=== PATIENT | male | born 1945 | race Caucasian/White ===

== ENCOUNTER 2016-07-11 11:33 | Inpatient (IN) | payer OTHER, MEDICARE ==
[~2016-07-11] VITALS: Ht 180.3 cm; Wt 76.5 kg
[2016-07-18] MEDS ORDERED: ASPI81TA11 PO (14:48)
[2016-07-18] MEDS ORDERED: BENA25CA4 PO (14:48)
[2016-07-18] MEDS ORDERED: CALC1TAB69 PO (14:48)
[2016-07-18] MEDS ORDERED: FINA5TAB2 PO (14:48)
[2016-07-18] MEDS ORDERED: LYSI1TAB4 PO (14:48)
[2016-07-18] MEDS ORDERED: NITR1SUB3 SL (14:48)
[2016-07-18] MEDS ORDERED: DILT-64 PO (14:48)
[2016-07-18] MEDS ORDERED: TAMS0.4C4 PO (14:48)
[2016-07-18] MEDS ORDERED: GLUC500C5 PO (14:48)
[2016-07-18] MEDS ORDERED: LISI-519 PO (14:48)
[2016-07-18] MEDS ORDERED: METF1000 PO (14:48)
[2016-07-18] MEDS ORDERED: ATOR20TA15 PO (14:48)
[2016-07-24] VITALS (15 sets, daily range): BP systolic 148–156; BP diastolic 67–84; PULSE 62–75; RESP 14–20; TEMP 97.5–97.9; O2SAT 96–99
[2016-07-24] MEDS ORDERED: INSULIN HUMAN REGULAR 1,000 UNITS/10 ML VIAL SQ PRN (06:30)
[2016-07-24] MEDS ORDERED: SODIUM CHLORID 0.9% 500 ML IV PRN (06:30)
[2016-07-24] MEDS ORDERED: CHLORHEXIDINE GLUCONATE 2 % 1 PACK (2 CLOTHS) TOPICAL PRN (06:30)
[2016-07-24] MEDS ORDERED: METOPROLOL TARTRATE 25 MG TAB PO PRN (06:30)
[2016-07-24] MEDS ORDERED: LACTATED RINGER'S 1000 ML IV PRN (06:30)
--- NOTE | 2016-07-24 06:41 | HHI.HP ---
History of Present Illness Chief Complaint: L LE claudication History of Present Illness 71 yo male with L LE claudication. h/o iliac stents. Claudication is lifestyle limiting and has tried exercise without relief of symptoms. No rest pain and no tissue loss. Past/Family/Social History Past Medical History HTN BPH CAD XOL DM Past Surgical History CABG T&A iliac stents Family History NC Home Medications Reported Medications Diphenhydramine HCl (Benadryl Allergy)25 Mg Cap1 Cap PO DAILY USES EQUATE ALLERGY 07/18/16 Tamsulosin 0.4 Mg Cap0.4 Mg PO BID #30 CAP Ref 0 07/18/16 Nitroglycerin SL 0.4 Mg Subl0.4 Mg SL DIRECTED PRN (CHEST PAIN) #100 TAB.SL Ref 0 ONE TABLET UNDER THE TONGUE NEEDED FOR CHEST PAIN, MAY REPEAT EVERY FIVE MINUTES FOR A TOTAL OF 3 DOSES OR CALL 911 IF NO RELIEF 07/18/16 Metformin 1,000 Mg Tab1,000 Mg PO BIDPC #60 TAB Ref 0 With meals 07/18/16 Lysine HCl (Lysine)500 Mg Tab1 Tab PO DAILY 07/18/16 Lisinopril 5 Mg Tab5 Mg PO DAILY #30 TAB Ref 0 07/18/16 Glucosamine 500 Mg [id number] Mg PO DAILY Ref 0 07/18/16 Finasteride 5 Mg Tab5 Mg PO HS #30 TAB Ref 0 Do not crush. 07/18/16 Diltiazem CD 24 HR 240 Mg [id number] Mg PO DAILY #30 CAP Ref 0 07/18/16 Calcium Polycarbophil 625 Mg [id number] Mg PO DAILY 07/18/16 Atorvastatin 20 Mg Tab20 Mg PO HS #30 TAB Ref 0 07/18/[address] (Aspirin EC)81 Mg Tabdr81 Mg PO DAILY Ref 0 07/18/16 Discontinued Reported Medications Calcium Polycarbophil (Fibercon)625 Mg Fto196 Mg PO DAILY PRN (CONSTIPATION) Ref 0 07/18/16 Coded Allergies: Codeine (Verified Allergy, Severe, URINARY RETENTION, 07/24/16) Contrast Media (Verified Allergy, Severe, PT STATES ALLERGIC TO SHRIMP NOT CONTRAST, 07/24/16) Penicillin (Verified Allergy, Severe, HIVES AND RASH, 07/24/16) Shrimp (Verified Allergy, Severe, RASH, 07/24/16) Review of Systems Constitutional: DENIES: Fatigue, Fever, Chills Respiratory: DENIES: Shortness of breath Cardiovascular: COMPLAINS OF: Claudication, DENIES: Chest pain Physical Exam Neuro: awake, alert, NAD; HI HEENT: NC/AT; wears glasses Neck: no JVD Heart: reg rate Lungs: nonlabored Abdomen: NT Vascular: nonpalp L fem pulse Extremities: no C/C/E HI symmetrically no wounds outpatient: Hct 40 plt 234 INR 1.0 creatinine 0.8 Assessment and Plan Plan L groin reconstruction and iliac endovascular intervention All questions answered today to patient and his Operative site marked To OR Discharge Planning 1-2 days home phone [phone] Kenney Lowery MD Jul 24, 2016 06:41
[2016-07-24] MEDS ORDERED: FAMOTIDINE 20 MG/2 ML VIAL ONE (07:54)
[2016-07-24] MEDS ORDERED: MIDAZOLAM HCL 2 MG/2 ML VIAL ONE (07:55)
[2016-07-24] MEDS ORDERED: THROMBIN (TOPICAL) 20,000 UNIT SPRAY KIT ONE (07:57)
[2016-07-24] MEDS ORDERED: HEPARIN SODIUM - IV 10,000 UNITS/10 ML VIAL ONE (07:57)
[2016-07-24] MEDS ORDERED: BUPIVACAINE/EPINEPHRINE 0.5% PF 30 ML VIAL ONE (07:57)
[2016-07-24] MEDS ORDERED: ACETAMINOPHEN 1000 MG/100 ML VIAL IV ONE (08:03)
[2016-07-24] MEDS ORDERED: VANCOMYCIN HCL 1000 MG VIAL ONE ×2 (09:05→09:36)
[2016-07-24] MEDS ORDERED: IOHEXOL 300 MG/ML 50 ML BTL (for RAD DIAG) OTHER ONE (10:09)
[2016-07-24] MEDS ORDERED: LACTATED RINGER'S 1000 ML INJ 1,000 ML IV SCH (10:42)
--- NOTE | 2016-07-24 10:42 | HHI.PR ---
Immediate Post Op Note Procedure Date: Jul 24, 2016 Pre Op Diagnosis: PAD, L LE claudication Post Op Diagnosis: PAD, L LE claudication Surgeon: Kenney Lowery Elevator Repairer Helper(s): Silvestre Hidalgo Procedure: LEFT iliofemoral endarterectomy w/ patch angioplasty L JEROME ELECTRONIC WARFARE OPERATOR L EIA ELECTRONIC WARFARE OPERATOR Findings: intensely calcific plaque, able to endarterectomize without difficulty and ELECTRONIC WARFARE OPERATOR inflow palpable SFA and PFA pulse at end of case Complications: none apparent Specimen(s) removed: ATHLETIC SCOUT plaque - not for pathology Estimated blood loss: 50mL Drains: None Fluids: 1100mL IVF Patient to: PACU Patient Condition: Good Implant/Devices: SEE IMPLANT LOG (if applicable) Date/Time of Procedure: SEE SURGICAL CARE RECORD Kenney Lowery MD Jul 24, 2016 10:42
[2016-07-24] MEDS ORDERED: MORPHINE SULFATE 4 MG/ML INJ IV PRN (10:45)
[2016-07-24] MEDS ORDERED: DO NOT ADM ANY ANTICOAGULANT DRUGS PRN (11:00)
[2016-07-24] MEDS ORDERED: fentaNYL CITRATE 250 MCG/5 ML AMP ONE (11:13)
[2016-07-24] MEDS ORDERED: ONDANSETRON HCL 4 MG/2 ML VIAL IV PUSH ONE (12:00)
[2016-07-24] MEDS ORDERED: PROPOFOL 200 MG/20 ML AMP IV ONE (12:00)
[2016-07-24] MEDS ORDERED: NEOSTIGMINE 3 MG/3 ML SYR IV ONE (12:00)
[2016-07-24] MEDS ORDERED: ePHEDrine/NS 25 MG/5 ML SYR IV ONE (12:00)
[2016-07-24] MEDS ORDERED: SODIUM CHLORID 0.9% 500 ML INJ 500 ML IV ONE (12:00)
[2016-07-24] MEDS: HYDROmorphone HCL 2 MG TAB PO PRN ×2 (15:29→19:32)
[2016-07-24] MEDS ORDERED: PILL SPLITTER OTHER PRN (16:15)
--- NOTE | 2016-07-24 16:42 | PD.VS.PN ---
Subjective POD #: 0 Procedure(s): L GAS STATION CASHIER TEA w/ patch and JEROME/EIA COATER ASSOCIATE Subjective/Hospital Course doing well, c/o thirsty Pain controlled Objective Vitals/I&O Date Time Temp Pulse Resp B/P Pulse Ox O2 Delivery O2 Flow Rate FiO2 07/24/16 16:00 66 07/24/16 15:00 71 07/24/16 14:00 65 07/24/16 13:00 73 07/24/16 12:35 97.8 73 14 148/80 96 07/24/16 12:00 98.0 72 18 141/70 95 Room Air 07/24/16 11:45 75 18 137/65 96 Nasal Cannula 3 07/24/16 11:30 77 18 101/57 96 Nasal Cannula 3 07/24/16 11:15 82 15 99/54 96 Nasal Cannula 3 07/24/16 11:05 97.9 78 15 127/62 96 Nasal Cannula 3 07/24/16 07:04 97.9 75 20 148/67 99 07/24/16 07/24/16 07/24/16 07:00 15:00 23:00 Intake Total 2550 ml Output Total 850 ml Balance 1700 ml Exam: L groin VAC in place Palpable pedal pulse Motor intact Laboratory Laboratory Tests Test 07/24/16 06:55 Blood Type AB POSITIVE Antibody Screen NEGATIVE Assessment and Plan Plan 1. Cardiac diet 2. Reg meds 3. D/C [place] in a.m. Discharge Planning 1-2 days home phone [phone] Kenney Lowery MD Jul 24, 2016 16:42
[2016-07-24] MEDS: metFORMIN HCL 500 MG TAB PO SCH (17:19)
[2016-07-24] MEDS: ATORVASTATIN 20 MG TAB PO SCH (19:32)
[2016-07-24] MEDS: DOCUSATE SODIUM 100 MG CAP PO SCH (19:32)
[2016-07-24] MEDS: FINASTERIDE 5 MG TAB PO SCH (19:32)
[2016-07-24] MEDS: TAMSULOSIN HCL 0.4 MG CAP PO SCH (19:33)
[2016-07-25] VITALS (30 sets, daily range): BP systolic 159–182; BP diastolic 65–96; PULSE 65–98; RESP 18; TEMP 97.3–98.4; O2SAT 91–98
[2016-07-25] MEDS: HYDROmorphone HCL 2 MG TAB PO PRN ×5 (01:58→23:28)
[2016-07-25 08:42] LABS: MEAN CELL VOLUME 89.3 FL (80.0-100.0); MEAN CORPUSCULAR HEMOGLOBIN 30.9 PG (27.0-34.0); MEAN CORPUSCULAR HGB CONC 34.6 % (32.0-36.0); PLATELET COUNT 198 TH/MM3 (150-450); RED BLOOD COUNT 4.37 MIL/MM3 (4.50-5.90); RED CELL DISTRIBUTION WIDTH 13.8 % (11.6-17.2); REVIEW FLAG FINAL; WHITE BLOOD COUNT 7.3 TH/MM3 (4.0-11.0)
[2016-07-25] MEDS ORDERED: cloNIDine HCL 0.2 MG TAB PO PRN (08:45)
--- NOTE | 2016-07-25 08:56 | PD.VS.PN ---
Subjective POD #: 1 Procedure(s): L BIOMEDICAL EQUIPMENT TECH TEA w/ patch and JEROME/EIA TAX SERVICES INTERN Subjective/Hospital Course Pt in bed alert and in nad reported he did not sleep well last night Denies pain or discomfort Pain controlled Objective Vitals/I&O Date Time Temp Pulse Resp B/P Pulse Ox O2 Delivery O2 Flow Rate FiO2 07/25/16 08:00 97.9 81 18 175/96 94 07/25/16 07:00 76 07/25/16 05:00 74 07/25/16 04:00 78 07/25/16 03:22 98.0 65 18 160/84 98 07/25/16 03:00 74 07/25/16 02:00 76 07/25/16 01:00 72 07/25/16 00:00 76 07/24/16 23:14 97.8 65 18 156/84 98 07/24/16 23:00 74 07/24/16 22:00 66 07/24/16 21:00 68 07/24/16 20:58 21 07/24/16 20:35 17 07/24/16 20:00 64 07/24/16 19:10 97.8 64 18 156/81 97 07/24/16 19:00 72 07/24/16 18:00 62 07/24/16 17:04 62 07/24/16 16:00 66 07/24/16 15:00 71 07/24/16 15:00 97.5 64 18 156/81 99 07/24/16 14:00 65 07/24/16 13:00 73 07/24/16 12:35 97.8 73 14 148/80 96 07/24/16 12:00 98.0 72 18 141/70 95 Room Air 07/24/16 11:45 75 18 137/65 96 Nasal Cannula 3 07/24/16 11:30 77 18 101/57 96 Nasal Cannula 3 07/24/16 11:15 82 15 99/54 96 Nasal Cannula 3 07/24/16 11:05 97.9 78 15 127/62 96 Nasal Cannula 3 Exam: GENERAL: alert and oriented in NAD, GCS 15 SKIN: Warm and dry. L groin with wound vac/ No hematoma CARDIOVASCULAR: RRR, + S1,S2 w/o M/G/R RESPIRATORY: BS CTA GASTROINTESTINAL: Abdomen S/NT MUSCULOSKELETAL: No cyanosis, or edema. Bilat feet warm with motor intact Pulses: + Palpable PT + triphasic DP Incisions: L groin w wound vac No hematoma Laboratory Laboratory Tests Test 07/25/16 07:27 White Blood Count 7.3 Red Blood Count 4.37 Hemoglobin 13.5 Hematocrit 39.0 Mean Corpuscular Volume 89.3 Mean Corpuscular Hemoglobin 30.9 Mean Corpuscular Hemoglobin 34.6 Concent Red Cell Distribution Width 13.8 Platelet Count 198 Mean Platelet Volume 7.5 Assessment and Plan Assessment: (1) PAD (peripheral artery disease) Status: Acute Plan Plan PT/OOB D/C young D/C MIVF Continue home medications Discharge Planning 1-2 days home phone [phone] Ally Fleming Jul 25, 2016 08:56
[2016-07-25] MEDS ORDERED: NON-FORMULARY DRUG (Glucosamine 500 MG) PO SCH (09:00)
[2016-07-25] MEDS ORDERED: LYSINE HCL PO SCH (09:00)
[2016-07-25] MEDS: metFORMIN HCL 500 MG TAB PO SCH ×2 (09:00→18:00)
[2016-07-25 09:20] LABS: BICARBONATE 28.3 MEQ/L (21.0-32.0); POTASSIUM 3.9 MEQ/L (3.5-5.1)
[2016-07-25] MEDS: TAMSULOSIN HCL 0.4 MG CAP PO SCH ×2 (09:51→20:39)
[2016-07-25] MEDS: DOCUSATE SODIUM 100 MG CAP PO SCH ×2 (09:51→20:39)
[2016-07-25] MEDS: DILTIAZEM-CD 240 MG CAP ER PO SCH (09:51)
[2016-07-25] MEDS: LISINOPRIL 5 MG TAB PO SCH (09:51)
[2016-07-25] MEDS: diphenhydrAMINE HCL 25 MG CAP PO SCH (09:51)
[2016-07-25] MEDS: PANTOPRAZOLE SOD 40 MG DELAYED RELEASE TAB PO SCH (09:51)
[2016-07-25] MEDS: ASPIRIN 81 MG CHEW TAB PO SCH (09:51)
[2016-07-25] MEDS: CALCIUM POLYCARBOPHIL 625 MG TAB PO SCH (09:51)
[2016-07-25] MEDS: ENOXAPARIN SODIUM 30 MG/0.3 ML SYRINGE SQ SCH (09:52)
[2016-07-25] MEDS ORDERED: BENZOCAINE-MENTHOL (SUGAR FREE) 15 MG-3.6 MG LOZENGE BUCCAL PRN (14:15)
[2016-07-25] MEDS ORDERED: ZOLPIDEM TARTRATE 5 MG TAB PO PRN (15:00)
[2016-07-25] MEDS ORDERED: DEXTROSE 50% IN WATER 50 ML VIAL(D50) IV PRN (15:00)
[2016-07-25] MEDS ORDERED: GLUCAGON 1 MG/ML VIAL OTHER PRN (15:00)
[2016-07-25] MEDS: SIMETHICONE 80 MG CHEWABLE TAB CHEW PRN ×3 (15:11→22:29)
[2016-07-25] MEDS: hydrALAZINE HCL 20 MG/ML VIAL IV PRN ×2 (16:35→20:43)
[2016-07-25] MEDS: INSULIN NovoLIN REGULAR SUPPLEMENTAL SCALE SQ SCH ×2 (16:36→20:44)
[2016-07-25] MEDS: ATORVASTATIN 20 MG TAB PO SCH (20:39)
[2016-07-25] MEDS: FINASTERIDE 5 MG TAB PO SCH (20:39)
[2016-07-26] VITALS (8 sets, daily range): BP systolic 117–135; BP diastolic 73–75; PULSE 66–84; RESP 18; TEMP 97.8; O2SAT 96–98
[2016-07-26] MEDS: SIMETHICONE 80 MG CHEWABLE TAB CHEW PRN (04:47)
[2016-07-26] MEDS: HYDROmorphone HCL 2 MG TAB PO PRN ×2 (04:48→08:29)
--- NOTE | 2016-07-26 06:21 | PD.VS.PN ---
Subjective POD #: 2 Procedure(s): L E MERCHANT TEA w/ patch and JEROME/EIA FURNITURE REPAIR TECHNICIAN Subjective/Hospital Course Lower abdominal cramping last night likely secondary to urinary retention - I/O cath x 1 and resolved pain, voiding well Groin "sore" but otherwise ok Leg ok Sourav po Objective Vitals/I&O Date Time Temp Pulse Resp B/P Pulse Ox O2 Delivery O2 Flow Rate FiO2 07/26/16 03:00 66 07/26/16 02:00 68 07/26/16 01:00 70 07/26/16 00:30 18 07/26/16 00:00 76 07/25/16 23:01 97.6 81 18 167/65 96 07/25/16 23:00 83 07/25/16 22:32 182/89 07/25/16 22:00 98 07/25/16 21:29 95 21 07/25/16 21:00 96 07/25/16 20:00 72 07/25/16 19:02 97.6 84 18 166/82 95 07/25/16 19:00 86 07/25/16 18:00 90 07/25/16 17:00 82 07/25/16 16:00 74 07/25/16 15:00 97.3 80 18 162/82 93 07/25/16 15:00 91 07/25/16 14:00 76 07/25/16 13:00 86 07/25/16 12:00 86 07/25/16 11:45 94 07/25/16 11:00 98.4 73 18 159/86 94 07/25/16 11:00 76 07/25/16 10:08 18 07/25/16 10:00 80 07/25/16 09:00 92 07/25/16 08:00 82 07/25/16 08:00 97.9 81 18 175/96 94 07/25/16 07:40 91 21 07/25/16 07:00 76 Exam: L groin VAC in place, minimal erythema superiolaterally - likely adhesive irritation Pulses: palpable PT Laboratory Laboratory Tests Test 07/25/16 07:27 White Blood Count 7.3 Red Blood Count 4.37 Hemoglobin 13.5 Hematocrit 39.0 Mean Corpuscular Volume 89.3 Mean Corpuscular Hemoglobin 30.9 Mean Corpuscular Hemoglobin 34.6 Concent Red Cell Distribution Width 13.8 Platelet Count 198 Mean Platelet Volume 7.5 Sodium Level 132 Potassium Level 3.9 Chloride Level 97 Carbon Dioxide Level 28.3 Anion Gap 7 Blood Urea Nitrogen 6 Creatinine 0.78 Estimat Glomerular Filtration 99 Rate Random Glucose 117 Calcium Level 8.7 Assessment and Plan Assessment: (1) PAD (peripheral artery disease) Status: Acute Plan Doing well abdominal cramping resolved plan for d/c today Discussed with patient how to remove skin vac on Sunday RTC 2 weeks with ABIs Discharge Planning today home phone [phone] Kenney Lowery MD Jul 26, 2016 06:21
[2016-07-26] MEDS: INSULIN NovoLIN REGULAR SUPPLEMENTAL SCALE SQ SCH (06:35)
[2016-07-26] MEDS ORDERED: DILA2TAB2 PO (08:27)
[2016-07-26] MEDS: DOCUSATE SODIUM 100 MG CAP PO SCH (08:28)
[2016-07-26] MEDS: ENOXAPARIN SODIUM 30 MG/0.3 ML SYRINGE SQ SCH (08:28)
[2016-07-26] MEDS: CALCIUM POLYCARBOPHIL 625 MG TAB PO SCH (08:28)
[2016-07-26] MEDS: LISINOPRIL 5 MG TAB PO SCH (08:28)
[2016-07-26] MEDS: PANTOPRAZOLE SOD 40 MG DELAYED RELEASE TAB PO SCH (08:28)
[2016-07-26] MEDS: TAMSULOSIN HCL 0.4 MG CAP PO SCH (08:28)
[2016-07-26] MEDS: DILTIAZEM-CD 240 MG CAP ER PO SCH (08:29)
[2016-07-26] MEDS: diphenhydrAMINE HCL 25 MG CAP PO SCH (08:29)
[2016-07-26] MEDS: ASPIRIN 81 MG CHEW TAB PO SCH (08:29)
[2016-07-26] MEDS: metFORMIN HCL 500 MG TAB PO SCH (08:29)
--- NOTE | 2016-07-26 08:37 | PD.VS.DC ---
Discharge Summary Admission Date: Jul 24, 2016 at 06:09 Discharge Date: Jul 26, 2016 Admission Diagnosis: (1) PAD (peripheral artery disease) Discharge Diagnosis: (1) PAD (peripheral artery disease) Status: Acute Brief History from admission 71 yo male with L LE claudication. h/o iliac stents. Claudication is lifestyle limiting and has tried exercise without relief of symptoms. No rest pain and no tissue loss. Procedure(s): L HOSE STRIPPER TEA w/ patch and JEROME/EIA WELDING MACHINE OPERATOR ELECTROSLAG Significant Findings GENERAL: A&OX3, NAD, GCS15 SKIN: Warm and dry. provena wound vac to left groin region intact, no hematoma CARDIOVASCULAR: +S1,S2 RESPIRATORY: CTA GASTROINTESTINAL: Abdomen S/NT MUSCULOSKELETAL: No cyanosis, or edema. Laboratory Tests Test 07/25/16 07:27 Red Blood Count 4.37 MIL/MM3 (4.50-5.90) Sodium Level 132 MEQ/L (136-145) Chloride Level 97 MEQ/L (98-107) Blood Urea Nitrogen 6 MG/DL (7-18) Random Glucose 117 MG/DL (74-106) Hospital Course: 71 yo male with L LE claudication. h/o iliac stents. Claudication is lifestyle limiting and has tried exercise without relief of symptoms. No rest pain and no tissue loss. Left groin reconstruction was done on 07/24/16 Pt has done well post op with improved symptoms Allergies Coded Allergies Type Severity Reaction Last Updated Verified Codeine Allergy Severe URINARY RETENTION 07/24/16 Yes Contrast Media Allergy Severe PT STATES ALLERGIC TO SHRIMP NOT CONTRAST Yes Penicillin Allergy Severe HIVES AND RASH 07/24/16 Yes Shrimp Allergy Severe RASH 07/24/16 Yes 6/5/176/5/176/6/176/6/176/7/176//17 06:00 18:00 06:00 18:00 06:00 18:00 Intake Total 2550 ml 1580 ml 960 ml 480 ml Output Total 850 ml 3550 ml 600 ml 1075 ml Balance 1700 ml -1970 ml 360 ml -595 ml Intake Oral 1580 ml 960 ml 480 ml IV Total 250 ml Other 2300 ml Output Urine Total 800 ml 3550 ml 600 ml 1075 ml Estimated Blood Loss 50 ml # Bowel Movements 0 Laboratory Tests Test 07/24/16 07/25/16 06:55 07:27 Blood Type AB POSITIVE Antibody Screen NEGATIVE White Blood Count 7.3 TH/MM3 Red Blood Count 4.37 MIL/MM3 Hemoglobin 13.5 GM/DL Hematocrit 39.0 % Mean Corpuscular Volume 89.3 FL Mean Corpuscular Hemoglobin 30.9 PG Mean Corpuscular Hemoglobin 34.6 % Concent Red Cell Distribution Width 13.8 % Platelet Count 198 TH/MM3 Mean Platelet Volume 7.5 FL Sodium Level 132 MEQ/L Potassium Level 3.9 MEQ/L Chloride Level 97 MEQ/L Carbon Dioxide Level 28.3 MEQ/L Anion Gap 7 MEQ/L Blood Urea Nitrogen 6 MG/DL Creatinine 0.78 MG/DL Estimat Glomerular Filtration 99 ML/MIN Rate Random Glucose 117 MG/DL Calcium Level 8.7 MG/DL Procedure Category Date Status Time Lactated Ringer's MED 07/24/16 In Process 1000 Ml Inj (Lr 1000 M 06:30 Sodium Chlorid 0.9% MED 07/24/16 In Process 500 Ml Inj (Ns 500 M 06:30 Metoprolol Tartrate MED 07/24/16 In Process (Lopressor) 06:30 Chlorhexidine 2% MED 07/24/16 In Process Cloth (Chlorhexidine 06:30 Insulin Human Regular MED 07/24/16 In Process Inj (Novolin R Inj 06:30 Type And Screen BBK 07/24/16 Complete 06:25 Famotidine Inj MED 07/24/16 Complete (Pepcid Inj) 07:54 Midazolam Inj (Versed MED 07/24/16 Complete Inj) 07:55 Heparin Inj (Heparin MED 07/24/16 Complete Inj) 07:57 Bupivacaine-Epi Pf MED 07/24/16 Complete 0.5% Inj (Sensorcaine 07:57 Thrombin Top [place] MED 07/24/16 Complete (Thrombin Top [place]) 07:57 Acetaminophen Inj MED 07/24/16 Complete (Ofirmev Inj) 08:03 Vancomycin Inj MED 07/24/16 Complete (Vancomycin Inj) 09:05 Urinary Catheter SALLIE 07/24/16 Complete Management 09:21 Vancomycin Inj MED 07/24/16 Complete (Vancomycin Inj) 09:36 Admit To Inpatient ADMITTING 07/24/16 Transmitted Code Status CODE 07/24/16 Transmitted 10:42 Vital Signs (Adult) SALLIE 07/24/16 In Process 10:42 Nature Photographer / SALLIE 07/24/16 In Process Telemetry 10:42 Activity Oob Ad Trish SALLIE 07/25/16 In Process 08:00 Activity Bed Rest SALLIE 07/24/16 In Process 10:[address] Villar SALLIE 07/24/16 In Process 10:42 ^ Precautions SALLIE 07/24/16 In Process 10:42 ^ Vac Dressing To Be SALLIE 07/24/16 In Process Used 10:42 Diet Heart Healthy DIET 07/24/16 Transmitted Lunch Basic Metabolic Panel LAB 07/25/16 Complete (Bmp) 06:00 Cbc No Diff, Includes LAB 07/25/16 Complete Plts 06:00 Consult Pt Eval & PT 07/24/16 Logged Treat 10:42 Lactated Ringer's MED 07/24/16 Complete 1000 Ml Inj (Lr 1000 M 10:42 Aspirin Chew (Aspirin MED 07/25/16 In Process Chew) 09:00 Clopidogrel (Plavix) MED 07/26/16 In Process 09:00 Pantoprazole MED 07/25/16 In Process (Protonix) 09:00 Hydromorphone MED 07/24/16 In Process (Dilaudid) 10:45 Morphine Inj MED 07/24/16 In Process (Morphine Inj) 10:45 Docusate Sodium MED 07/24/16 In Process (Colace) 21:00 Inpatient ADMITTING 07/24/16 Transmitted Certification Atorvastatin (Lipitor) MED 07/24/16 In Process 21:00 Calcium Polycarbophil MED 07/25/16 In Process (Fiber Con) 09:00 Diltiazem Cd MED 07/25/16 In Process (Cardizem Cd) 09:00 Diphenhydramine MED 07/25/16 In Process (Benadryl) 09:00 Finasteride (Proscar) MED 07/24/16 In Process 21:00 Lisinopril (Prinivil) MED 07/25/16 In Process 09:00 Metformin (Glucophage) MED 07/24/16 In Process 18:00 Tamsulosin (Flomax) MED 07/24/16 In Process 21:00 (Nf) Glucosamine MED 07/25/16 Complete 09:00 (Nf) Lysine Hcl MED 6/6/17 Complete (Lysine) 09:00 Fentanyl Inj MED 07/24/16 Complete (Fentanyl Inj) 11:13 Enoxaparin Inj MED 07/25/16 In Process (Lovenox Inj) 10:00 [facility] Nursing MED 07/24/16 Complete Information 11:00 Anticoagulant Alert SALLIE 07/24/16 In Process ^ Sling SALLIE 07/24/16 In Process Resp Oxygen Rasheed C RSP 07/24/16 Logged Titrat 1-4 L Iohexol 300 Inj MED 07/24/16 Complete (Omnipaque 300 Inj) 10:09 Class [facility]16 Complete MIN General/Pacu [facility] 07/24/16 Complete Pill Splitter (Pill MED 07/24/16 In Process Splitter) 16:15 Am Admit Pre Op Care [facility] 07/24/16 Complete Remove Urinary SALLIE 07/25/16 In Process Catheter 07:59 Hydralazine Inj MED 07/25/16 In Process (Apresoline Inj) 08:45 Clonidine (Catapres) MED 07/25/16 In Process 08:45 Consult Pt Eval & Tx PT 07/25/16 Complete OOB 08:56 Sling Cradle Arm ORTHO 07/25/16 Complete Benzocain-Menthol MED 07/25/16 In Process (Sugar Free) (Cepacol 14:15 Simethicone Chew MED 07/25/16 In Process (Mylicon Chew) 14:15 Zolpidem (Ambien) MED 07/25/16 In Process 15:00 Blood Glucose Goal SALLIE 07/25/16 In Process (Criteria) 14:47 Hypoglycemia 70 Mg/Dl SALLIE 07/25/16 In Process Or < 14:[address]: Other SALLIE 07/25/16 In Process 14:47 Dextrose 50% In Claudia MED 07/25/16 In Process (Vial) Inj (D50w (Vi 15:00 Glucagon Inj MED 07/25/16 In Process (Glucagon Inj) 15:00 Insulin Human Reg MED 07/25/16 In Process Supp Scale (Novolin R 16:00 ^ Straight Catheter SALLIE 07/25/16 In Process 16:19 Urinary Catheter SALLIE 07/25/16 Complete Management 16:19 Attending Discharge DISCHARGE 07/26/16 Transmitted Order Vital Signs Date Time Temp Pulse Resp B/P Pulse Ox O2 Delivery O2 Flow Rate FiO2 07/26/16 07:00 68 07/26/16 03:01 97.8 84 18 135/73 96 07/26/16 03:00 66 07/26/16 02:00 68 07/26/16 01:00 70 07/26/16 00:30 18 07/26/16 00:00 76 07/25/16 23:01 97.6 81 18 167/65 96 07/25/16 23:00 83 07/25/16 22:32 182/89 07/25/16 22:00 98 07/25/16 21:29 95 21 07/25/16 21:00 96 07/25/16 20:00 72 07/25/16 19:02 97.6 84 18 166/82 95 07/25/16 19:00 86 07/25/16 18:00 90 07/25/16 17:00 82 07/25/16 16:00 74 07/25/16 15:00 97.3 80 18 162/82 93 07/25/16 15:00 91 07/25/16 14:00 76 07/25/16 13:00 86 07/25/16 12:00 86 07/25/16 11:45 94 07/25/16 11:00 98.4 73 18 159/86 94 07/25/16 11:00 76 07/25/16 10:08 18 07/25/16 10:00 80 07/25/16 09:00 92 07/25/16 08:00 82 07/25/16 08:00 97.9 81 18 175/96 94 07/25/16 07:40 91 21 07/25/16 07:00 76 07/25/16 05:00 74 07/25/16 04:00 78 07/25/16 03:22 98.0 65 18 160/84 98 07/25/16 03:00 74 07/25/16 02:00 76 07/25/16 01:00 72 07/25/16 00:00 76 07/24/16 23:14 97.8 65 18 156/84 98 07/24/16 23:00 74 07/24/16 22:00 66 07/24/16 21:00 68 07/24/16 20:58 21 07/24/16 20:00 64 07/24/16 19:10 97.8 64 18 156/81 97 07/24/16 19:00 72 07/24/16 18:00 62 07/24/16 17:04 62 07/24/16 16:00 66 07/24/16 15:00 71 07/24/16 15:00 97.5 64 18 156/81 99 07/24/16 14:00 65 07/24/16 13:00 73 07/24/16 12:35 97.8 73 14 148/80 96 07/24/16 12:00 98.0 72 18 141/70 95 Room Air 07/24/16 11:45 75 18 137/65 96 Nasal Cannula 3 07/24/16 11:30 77 18 101/57 96 Nasal Cannula 3 07/24/16 11:15 82 15 99/54 96 Nasal Cannula 3 07/24/16 11:05 97.9 78 15 127/62 96 Nasal Cannula 3 07/24/16 07:04 97.9 75 20 148/67 99 Discharge Condition: Good Discharge Disposition: Discharge Home Discharge Instructions: Pt will go home w/ wound vac to Left groin Instructed patient to remove wound vac on (Sat) 07/29/16 Instructions on removal was given to pt, pt verbalized understanding Leave incision open to air once wound vac is removed Do not apply any ointments or creams to incision site Pt may take a shower NO TUB baths or swimming until incision is healed Call the office to report any new onset of increased redness, drainage or swelling F/U in our OPC in 2W at scheduled appointment time Ally HERNADEZ [facility] [phone] Any questions or concerns: Call [facility] [phone] Ally Fleming Jul 26, 2016 08:36
[2016-07-26] MEDS ORDERED: CLOPIDOGREL 75 MG TAB PO SCH (09:00)
[2016-07-26] MEDS ORDERED: NORMOSOL R INJ 2,000 ML IV ONE (10:44)
--- NOTE | 2016-07-26 10:44 | MP ---
cc: KASSIE LOWERY MD DATE OF SURGERY: 07/24/2016 PREOPERATIVE DIAGNOSIS: Left lower extremity claudication. POSTOPERATIVE DIAGNOSIS: Left lower extremity claudication. OPERATION: 1. Left iliofemoral endarterectomy with patch angioplasty. 2. Aortogram. 3. Left common iliac artery angioplasty. 4. Left external iliac artery angioplasty. SURGEON Kassie Lowery MD. FORMULATOR COMPOUNDER SURGEON: Silvestre Hidalgo MD. ANESTHESIA: General. INDICATIONS Mr. Brenner is a gentleman who has left leg claudication and preoperative history of the iliac stent. He was sent for further reconstruction to treat his claudication. There is no prior cath based imaging for my review. However, a CT scan suggested he had both common femoral as well as more proximal inflow disease. PROCEDURE Informed consent was obtained, the patient was placed supine on the operating room table and an appropriate time-out was taken to explain to the patient the option and planned procedure. The administration of a gram of vancomycin was initiated prior to the skin incision will be discontinued after a single preoperative dose. Vancomycin was chosen because of the patient's penicillin allergy. Everyone in the room agreed with the time out and we proceeded. He was prepped from his elbows to his toes, a vertical incision was made in the patient's left groin, carried down to the subcutaneous tissue with electrocautery. His external iliac artery, circumflex vessels, common femoral artery profunda and SFA were all dissected free. The patient was systemically heparinized and throughout the remainder of the case the ACT was greater then 250. Control of the external iliac artery and profunda as well as superficial femoral artery were obtained with profunda clamps and a longitudinal arteriotomy was made below blade and with Robert scissors. The entire artery was endarterectomized without difficulty including the external iliac artery which was then endarterectomized without difficulty. Obtaining a nice endpoint a bovine pericardial patch was brought onto the field and sewn on as a patch using running 5-0 Prolene suture at the completion of the flush was noted to be hemostatic. The 29-gauge micropuncture needle was used to access the middle of the patch from the iliofemoral endarterectomy was exchanged using Seldinger technique micropuncture sheath through which a 0.035 Glidewire was introduced and the micropuncture sheath was exchanged for a 6-Setswana sheath. The Glidewire was navigated past the high-grade calcific stenosis with the aide of an Berenstein catheter and placed into the aorta. The glide was exchanged for a Hurst wire and the entire area was angioplastied with a 6 mm balloon. At the completion angiogram showed excellent result of e recoil extravasation, nor any flow-limiting lesion. Wire cath and sheath removed. The sheathotomy was closed with a 5-0 Prolene suture. The wound was made hemostatic. The heparin reversed with protamine. The wound was closed with 2-0 Polysorb, 3-0 Polysorb and 4-0 Monocryl. Sponge and needle counts were correct at the end of the case. I was present and scrubbed for the entire procedure. The patient a patent common iliac artery stent and a high grade proximal with some mid common iliac artery stenosis. There is a high-grade proximal external iliac artery stenosis and all of these were successfully treated with angioplasty. MD SEYMOUR Velez/ronny /4:47 PM /10:34 AM DEVANTE
== END 2016-07-26 10:45 | disposition home or self-care (01) | DRG 272 ==
LOC: HSDI 07-24 06:09 → HCIN 07-24 12:22
PROVIDERS: ADMIT Surgery; ATTEND Surgery
PROC: 04CL0ZZ Extirpation of Matter from Left Femoral Artery, Open Approach (ICD-10-PCS; 2016-07-24)
PROC: 04UL0KZ Supplement Left Femoral Artery with Nonautologous Tissue Substitute, Open Approach (ICD-10-PCS; 2016-07-24)
PROC: 047D3ZZ Dilation of Left Common Iliac Artery, Percutaneous Approach (ICD-10-PCS; 2016-07-24)
PROC: 047J3ZZ Dilation of Left External Iliac Artery, Percutaneous Approach (ICD-10-PCS; 2016-07-24)
PROC: B41D1ZZ Fluoroscopy of Aorta and Bilateral Lower Extremity Arteries using Low Osmolar Contrast (ICD-10-PCS; 2016-07-24)
PROC: 04CJ0ZZ Extirpation of Matter from Left External Iliac Artery, Open Approach (ICD-10-PCS; principal; 2016-07-24 08:21)
DX: I70.212 Atherosclerosis of native arteries of extremities with intermittent claudication, left leg (principal); I10 Essential (primary) hypertension; I70.8 Atherosclerosis of other arteries; R33.9 Retention of urine, unspecified; E11.9 Type 2 diabetes mellitus without complications; Z79.84 Long term (current) use of oral hypoglycemic drugs; I25.10 Atherosclerotic heart disease of native coronary artery without angina pectoris; N40.0 Benign prostatic hyperplasia without lower urinary tract symptoms; Z91.041 Radiographic dye allergy status; Z91.013 Allergy to seafood; Z88.0 Allergy status to penicillin; Z95.1 Presence of aortocoronary bypass graft
CPT/HCPCS: 75710; 80048; 82948; 85027; 86850; 86900; 86901; C1725; C1769; J0131; J0360; J1644; J1650; J2250; J2270; J2405; J2710; J3010; J3370; J7040; J7120; Q9967

== ENCOUNTER → 2016-07-18 | Outpatient (CLI) | payer MEDICARE, OTHER ==
[~2016-07-18] MED LIST: ASPI81TA11 PO; ATOR20TA15 PO; BENA25CA4 PO; CALC1TAB69 PO; DILA2TAB2 PO; DILT-64 PO; FIBE625T PO; FINA5TAB2 PO; GLUC500C5 PO; LISI-519 PO; LYSI1TAB4 PO; METF1000 PO; NITR1SUB3 SL; TAMS0.4C4 PO
[2016-07-18 13:48] LABS: AUTOMATED NEUTROPHIL # 3.3 TH/MM3 (1.8-7.7); BASOPHIL # 0.1 TH/MM3 (0-0.2); EOSINOPHIL # 0.1 TH/MM3 (0-0.4); EOSINOPHIL % 1.3 % (0.0-4.0); HEMATOCRIT 40.4 % (39.0-51.0); HEMO FLAGS DIFF FINAL; LYMPH % 25.7 % (9.0-44.0); LYMPHOCYTE # 1.5 TH/MM3 (1.0-4.8); MEAN CELL VOLUME 89.3 FL (80.0-100.0); MEAN CORPUSCULAR HEMOGLOBIN 30.7 PG (27.0-34.0); MEAN CORPUSCULAR HGB CONC 34.4 % (32.0-36.0); MONO % 12.9 % (0.0-8.0); NEUT % 59.1 % (16.0-70.0); PLATELET COUNT 234 TH/MM3 (150-450); RED BLOOD COUNT 4.52 MIL/MM3 (4.50-5.90); RED CELL DISTRIBUTION WIDTH 14.1 % (11.6-17.2); WHITE BLOOD COUNT 5.7 TH/MM3 (4.0-11.0)
[2016-07-18 13:53] LABS: PROTHROMBIN TIME - PATIENT 10.7 SEC (9.8-11.6)
[2016-07-18 14:15] LABS: POTASSIUM 3.9 MEQ/L (3.5-5.1)
== END ==
LOC: CPRE 12:08
PROVIDERS: ATTEND Surgery
DX: Z01.812 Encounter for preprocedural laboratory examination (principal); I73.9 Peripheral vascular disease, unspecified
CPT/HCPCS: 36415; 80048; 85025; 85610

== ENCOUNTER 2016-12-28 08:00 | Inpatient (IN) | payer MEDICARE ==
[~2016-12-28] VITALS: Ht 180.3 cm; Wt 74.0 kg
[2016-12-28] VITALS (9 sets, daily range): BP systolic 143–157; BP diastolic 70–84; PULSE 70–82; RESP 16–18; TEMP 97.6–98.3; O2SAT 96–98
[~2016-12-28 08:00] MED LIST changes: -ASPI81TA11 PO; +ASPI81TA23 PO; -CALC1TAB69 PO; +CALC625T13 PO; -DILA2TAB2 PO; -DILT-64 PO; +DILT240C44 PO; -FIBE625T PO; -GLUC500C5 PO; -LISI-519 PO; +LOSA25TA PO; -LYSI1TAB4 PO
[2016-12-28] MEDS ORDERED: ASPI-183 PO (10:09)
--- NOTE | 2016-12-28 10:21 | RADRPT ---
EXAM DATE/TIME: 12/28/2016 09:53 [place] COMPARISON: No previous studies available for comparison. EXTERNAL COMPARISON : INDICATIONS : Pre op to evaluate for pneumonia, pneumothorax, or communicable diseases. MEDICAL HISTORY : None. SURGICAL HISTORY : CABG. ENCOUNTER: Initial ACUITY: 1 day PAIN SCORE: 0/10 LOCATION: Bilateral chest FINDINGS: Portable AP view of the chest demonstrates a normal-sized cardiac silhouette with calcification of th e aorta in this patient post median sternotomy and CABG. No pleural effusion, airspace consolidation, or pneumothorax is identified. The bones and soft tissues demonstrate no acute finding. CONCLUSION: No acute cardiopulmonary abnormality is identified. Silvestre Gong MD on December 28, 2016 at 10:19 Board Certified Radiologist. This report was verified electronically.
[2016-12-28 10:29] LABS: AUTOMATED NEUTROPHIL # 3.6 TH/MM3 (1.8-7.7); BASOPHIL # 0.1 TH/MM3 (0-0.2); BASOPHIL % 1.1 % (0.0-2.0); EOSINOPHIL % 0.8 % (0.0-4.0); HEMATOCRIT 41.7 % (39.0-51.0); HEMO FLAGS DIFF FINAL; LYMPH % 24.7 % (9.0-44.0); LYMPHOCYTE # 1.5 TH/MM3 (1.0-4.8); MEAN CELL VOLUME 90.3 FL (80.0-100.0); MEAN CORPUSCULAR HGB CONC 34.3 % (32.0-36.0); MONO % 13.1 % (0.0-8.0); NEUT % 60.3 % (16.0-70.0); PLATELET COUNT 224 TH/MM3 (150-450); RED BLOOD COUNT 4.61 MIL/MM3 (4.50-5.90); RED CELL DISTRIBUTION WIDTH 14.2 % (11.6-17.2); WHITE BLOOD COUNT 5.9 TH/MM3 (4.0-11.0)
[2016-12-28] MEDS ORDERED: METOPROLOL TARTRATE 25 MG TAB PO PRN (10:30)
[2016-12-28] MEDS ORDERED: LACTATED RINGER'S 1000 ML IV PRN (10:30)
[2016-12-28] MEDS ORDERED: POVIDONE IODINE 5% (ANTISEPSIS KIT) 4 APPLICATIONS EACH NARE PRN (10:30)
[2016-12-28] MEDS ORDERED: CHLORHEXIDINE GLUCONATE 2 % 1 PACK (2 CLOTHS) TOPICAL PRN (10:30)
[2016-12-28] MEDS ORDERED: SODIUM CHLORID 0.9% 500 ML IV PRN (10:30)
[2016-12-28 10:36] LABS: INTERNATIONAL NORMALIZED RATIO 0.9 RATIO; PROTHROMBIN TIME - PATIENT 10.4 SEC (9.8-11.6)
[2016-12-28 10:42] LABS: BICARBONATE 25.6 MEQ/L (21.0-32.0); POTASSIUM 4.1 MEQ/L (3.5-5.1)
--- NOTE | 2016-12-28 11:35 | HHI.HP ---
History of Present Illness Chief Complaint: R LE claudication History of Present Illness 71 yo male with PAD and R LE claudication. He has tried conservative therapy. He underwent L groin reconstruction and angio with relief of L LE symptoms. Presents for R LE. 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 Social History ex smoker Family History NC Home Medications Reported Medications Aspirin (Aspirin) 325 Mg Tab, 325 MG PO DAILY, TAB 0 Refills 12/28/16 Losartan (Losartan) 25 Mg Tab, 25 MG PO DAILY for Blood Pressure Management, # 30 TAB 0 Refills 12/26/16 Diphenhydramine HCl (Benadryl Allergy) 25 Mg Cap, 1 CAP PO DAILY USES EQUATE ALLERGY 07/18/16 Tamsulosin (Tamsulosin) 0.4 Mg Cap, 0.4 MG PO BID for Manage Prostate Problems, #30 CAP 0 Refills 07/18/16 Nitroglycerin SL (Nitroglycerin SL) 0.4 Mg Subl, 0.4 MG SL DIRECTED Y for CHEST PAIN, #100 TAB.SL 0 Refills ONE TABLET UNDER THE TONGUE NEEDED FOR CHEST PAIN, MAY REPEAT EVERY FIVE MINUTES FOR A TOTAL OF 3 DOSES OR CALL 911 IF NO RELIEF 07/18/16 Metformin (Metformin) 1,000 Mg Tab, 1000 MG PO BIDPC for Blood Sugar Management , #60 TAB 0 Refills With meals 07/18/16 Finasteride (Finasteride) 5 Mg Tab, 5 MG PO HS for Manage Prostate Problems, # 30 TAB 0 Refills Do not crush. 07/18/16 Diltiazem CD 24 HR (Diltiazem CD 24 HR) 240 Mg Caper, 240 MG PO DAILY, #30 CAP 0 Refills 07/18/16 Atorvastatin (Atorvastatin) 20 Mg Tab, 20 MG PO HS for Cholesterol Management, # 30 TAB 0 Refills 07/18/16 Discontinued Reported Medications Calcium Polycarbophil (Calcium Polycarbophil) 625 Mg Tab, 150 MG PO DAILY, TAB 07/18/[address] (Aspirin EC) 81 Mg Tabdr, 81 MG PO DAILY, TAB 0 Refills 07/18/16 Lysine HCl (Lysine) 500 Mg Tab, 1 TAB PO DAILY 07/18/16 Lisinopril (Lisinopril) 5 Mg Tab, 5 MG PO DAILY for Blood Pressure Management, # 30 TAB 0 Refills 07/18/16 Glucosamine (Glucosamine) 500 Mg Cap, 500 MG PO DAILY for Herbal Supplements, CAP 0 Refills 07/18/16 Discontinued Scripts Hydromorphone (Dilaudid) 2 Mg Tab, 1 MG PO Q4H Y for PAIN SCALE 1 TO 5, #20 TAB 0 Refills Prov:Ally Fleming SYSTEMS SECURITY CONSULTANT 07/26/16 Coded Allergies: codeine (Unverified Allergy, Severe, URINARY RETENTION, 12/26/16) diatrizoate meglumine (Unverified Allergy, Severe, PT STATES ALLERGIC TO SHRIMP NOT CONTRAST, 12/26/16) gadobenic acid (Unverified Allergy, Severe, PT STATES ALLERGIC TO SHRIMP NOT CONTRAST, 12/26/16) gadodiamide (Unverified Allergy, Severe, PT STATES ALLERGIC TO SHRIMP NOT CONTRAST, 12/26/16) gadoteridol (Unverified Allergy, Severe, PT STATES ALLERGIC TO SHRIMP NOT CONTRAST, 12/26/16) iodixanol (Unverified Allergy, Severe, PT STATES ALLERGIC TO SHRIMP NOT CONTRAST, 12/26/16) iohexol (Unverified Allergy, Severe, PT STATES ALLERGIC TO SHRIMP NOT CONTRAST, 12/26/16) penicillin G (Unverified Allergy, Severe, HIVES AND RASH, 12/26/16) shrimp (Unverified Allergy, Severe, RASH, 12/26/16) Review of Systems Constitutional: COMPLAINS OF: Diaphoretic episodes, Night Sweats, DENIES: Fever , Chills Respiratory: DENIES: Shortness of breath Cardiovascular: COMPLAINS OF: Claudication, DENIES: Chest pain Physical Exam Vitals/I&O Date Time Temp Pulse Resp B/P (MAP) Pulse Ox O2 Delivery O2 Flow Rate FiO2 12/28/16 10:13 97.8 82 20 137/75 (95) 100 Neuro: alert, oriented, HI HEENT: NC/AT Neck: trachea midline Heart: reg rate Lungs: clear Abdomen: soft, NT Vascular: R groin without rashes Laboratory Tests Test 12/28/16 10:10 White Blood Count 5.9 Red Blood Count 4.61 Hemoglobin 14.3 Hematocrit 41.7 Mean Corpuscular Volume 90.3 Mean Corpuscular Hemoglobin 31.0 Mean Corpuscular Hemoglobin Concent 34.3 Red Cell Distribution Width 14.2 Platelet Count 224 Mean Platelet Volume 7.7 Neutrophils (%) (Auto) 60.3 Lymphocytes (%) (Auto) 24.7 Monocytes (%) (Auto) 13.1 Eosinophils (%) (Auto) 0.8 Basophils (%) (Auto) 1.1 Neutrophils # (Auto) 3.6 Lymphocytes # (Auto) 1.5 Monocytes # (Auto) 0.8 Eosinophils # (Auto) 0.0 Basophils # (Auto) 0.1 CBC Comment DIFF FINAL Differential Comment Prothrombin Time 10.4 Prothromb Time International Ratio 0.9 Blood Urea Nitrogen 7 Creatinine 0.78 Random Glucose 124 Calcium Level 8.8 Sodium Level 135 Potassium Level 4.1 Chloride Level 101 Carbon Dioxide Level 25.6 Anion Gap 8 Estimat Glomerular Filtration Rate 99 Last 48 hours Impressions Chest X-Ray 12/28/16 0937 Signed Impressions: Service Date/Time: December 09:53 - CONCLUSION: No acute cardiopulmonary abnormality is identified. MD Jaquan Jimenez VTE Risk Assessment Caprini VTE Risk Assessment: Mod/High Risk (score >= 2) Caprini Risk Assessment Model Point Value = 1 Point Value = 2 Point Value = 3 Point Value = 5 Age 41-60 Minor surgery BMI > 25 kg/m2 Swollen legs Varicose veins or History of unexplained or recurrent spontaneous Oral contraceptives or hormone replacement Sepsis (< 1 month) Serious lung disease, including pneumonia (< 1 month) Abnormal pulmonary function Acute myocardial infarction Congestive heart failure (< 1 month) History of inflammatory bowel disease Medical patient at bed rest Age 61-74 Arthroscopic surgery Major open surgery (> 45 min) Laparoscopic surgery (> 45 min) Malignancy Confined to bed (> 72 hours) Immobilizing plaster cast Central venous access Age >= 75 History of VTE Family history of VTE Factor V Leiden Prothrombin [id number] Lupus anticoagulant Anticardiolipin antibodies Elevated serum homocysteine Heparin-induced thrombocytopenia Other congenital or acquired thrombophilia Stroke (< 1 month) Elective arthroplasty Hip, pelvis, or leg fracture Acute spinal cord injury (< 1 month) Prophylaxis Regimen Total Risk Factor Score Risk Level Prophylaxis Regimen 0-1 Low Early ambulation 2 Moderate Order ONE of the following: *Sequential Compression Device (SCD) *Heparin 5000 units SQ BID 3-4 Higher Order ONE of the following medications: *Heparin 5000 units SQ TID *Enoxaparin/Lovenox 40 mg SQ daily (WT < 150 kg, CrCl > 30 mL/min) *Enoxaparin/Lovenox 30 mg SQ daily (WT < 150 kg, CrCl > 10-29 mL/min) *Enoxaparin/Lovenox 30 mg SQ BID (WT < 150 kg, CrCl > 30 mL/min) AND/OR *Sequential Compression Device (SCD) 5 or more Highest Order ONE of the following medications: *Heparin 5000 units SQ TID (Preferred with Epidurals) *Enoxaparin/Lovenox 40 mg SQ daily (WT < 150 kg, CrCl > 30 mL/min) *Enoxaparin/Lovenox 30 mg SQ daily (WT < 150 kg, CrCl > 10-29 mL/min) *Enoxaparin/Lovenox 30 mg SQ BID (WT < 150 kg, CrCl > 30 mL/min) AND *Sequential Compression Device (SCD) Assessment and Plan Plan R BLOW MACHINE TENDER STARCH SPRAYING TEA and angio/intervention Discharge Planning 2 days Kenney Lowery MD Dec 28, 2016 11:35
[2016-12-28] MEDS ORDERED: PROTAMINE SULFATE 50 MG/5 ML VIAL ONE (11:38)
[2016-12-28] MEDS ORDERED: HEPARIN SODIUM - IV 10,000 UNITS/10 ML VIAL ONE (11:38)
[2016-12-28] MEDS ORDERED: BUPIVACAINE/EPINEPHRINE 0.5% PF 30 ML VIAL ONE (11:38)
[2016-12-28] MEDS ORDERED: THROMBIN (TOPICAL) 20,000 UNIT VIAL ONE (11:38)
[2016-12-28] MEDS ORDERED: BUPIVACAINE HCL PF 0.5% 30 ML VIAL ONE (11:40)
[2016-12-28] MEDS ORDERED: HEPARIN-NS/PF INJ 500 ML ONE ×3 (11:41→13:44)
[2016-12-28] MEDS ORDERED: NORMOSOL R INJ 1,000 ML IV ONE (12:00)
[2016-12-28] MEDS ORDERED: PHENYLEPHRINE HCL 10 MG/ML VIAL IV ONE (12:00)
[2016-12-28] MEDS ORDERED: SODIUM CHLOR 0.9% 250 ML INJ 250 ML IV ONE (12:00)
[2016-12-28] MEDS ORDERED: NEOSTIGMINE 3 MG/3 ML SYR IV ONE (12:00)
[2016-12-28] MEDS ORDERED: ROCURONIUM INJ 50 MG/5 ML SYRINGE IV PUSH ONE (12:00)
[2016-12-28] MEDS ORDERED: PROPOFOL 200 MG/20 ML AMP IV ONE (12:00)
[2016-12-28] MEDS ORDERED: GLYCOPYRROLATE 1 MG/5 ML SYRINGE IV PUSH ONE (12:00)
[2016-12-28] MEDS ORDERED: ePHEDrine/NS 25 MG/5 ML SYR IV ONE (12:00)
[2016-12-28] MEDS ORDERED: ONDANSETRON HCL 4 MG/2 ML VIAL IV PUSH ONE (12:00)
[2016-12-28] MEDS ORDERED: PHENYLEPH/NS 1000 MCG/10 ML SYR IV ONE (12:00)
[2016-12-28] MEDS ORDERED: LIDOCAINE HCL 1% PF 5 ML AMPULE OTHER ONE (12:00)
[2016-12-28] MEDS ORDERED: SODIUM CHLORID 0.9% 500 ML INJ 500 ML IV ONE (12:00)
[2016-12-28] MEDS ORDERED: methylPREDNISolone SOD SUCC 125 MG/2 ML VIAL ONE (12:06)
[2016-12-28] MEDS ORDERED: MORPHINE SULFATE 4 MG/ML INJ IV PUSH PRN (12:15)
[2016-12-28] MEDS ORDERED: CLINDAMYCIN PHOS 900 MG/6 ML VIAL IV ONE (12:30)
[2016-12-28] MEDS ORDERED: IOHEXOL IV ONE (12:34)
[2016-12-28] MEDS ORDERED: ACETAMINOPHEN 1000 MG/100 ML 100 ML IV ONE (12:59)
[2016-12-28] MEDS ORDERED: VASOPRESSIN 20 UNITS/ML VIAL (IVTITR) ONE (12:59)
--- NOTE | 2016-12-28 13:44 | EKG ---
Date Performed: 12/28/2016 Time Performed: 09:59:04 PTAGE: 71 years EKG: Baseline artifact present Sinus rhythm NORMAL ECG NO PREVIOUS TRACING DOCTOR: Theodore Stratton Interpretating Date/Time 12/28/2016 13:43:37
--- NOTE | 2016-12-28 14:40 | HHI.PR ---
Immediate Post Op Note Procedure Date: Dec 28, 2016 Pre Op Diagnosis: R LE claudication, PAD Post Op Diagnosis: R LE claudication, PAD Surgeon: Kenney Lowery Fabric Designer(s): Smith Garvey Procedure: 1. R GENERAL LITHOGRAPHIC WORKER TEA with patch angioplasty 2. R JEROME orbital atherectomy 3. R JEROME INTERNAL RECRUITER/stent (8x60 Zilver) 4. R EIA INTERNAL RECRUITER (6mm) Findings: palpable femoral pulse and good Doppler signals at feet Complications: none Specimen(s) removed: none for pathology Estimated blood loss: 75mL Anesthesia: General Drains: None Fluids: 1400mL IVF Urinary Output (mLs): 275 Patient to: PACU Patient Condition: Good Implant/Devices: SEE IMPLANT LOG (if applicable) Date/Time of Procedure: SEE SURGICAL CARE RECORD Kenney Lowery MD Dec 28, 2016 14:40
[2016-12-28] MEDS ORDERED: *morphine SULFATE 8 MG/ML PERIprocedure ONLY ONE (15:16)
[2016-12-28] MEDS ORDERED: CLOPIDOGREL 75 MG TAB PO ONE (15:30)
[2016-12-28] MEDS ORDERED: DO NOT ADM ANY ANTICOAGULANT DRUGS PRN (15:45)
[2016-12-28] MEDS ORDERED: ENOXAPARIN SODIUM 30 MG/0.3 ML SYRINGE SQ SCH (16:00)
[2016-12-28] MEDS: TAMSULOSIN HCL 0.4 MG CAP PO SCH (20:43)
[2016-12-28] MEDS: FINASTERIDE 5 MG TAB PO SCH (20:43)
[2016-12-28] MEDS: FAMOTIDINE 20 MG TAB PO SCH (20:43)
[2016-12-28] MEDS: ATORVASTATIN 20 MG TAB PO SCH (20:43)
[2016-12-29] VITALS (26 sets, daily range): BP systolic 115–141; BP diastolic 58–81; PULSE 63–84; RESP 16–20; TEMP 97.4–98.4; O2SAT 93–99
[2016-12-29 04:35] LABS: HEMATOCRIT 37.1 % (39.0-51.0); MEAN CELL VOLUME 89.7 FL (80.0-100.0); MEAN CORPUSCULAR HEMOGLOBIN 30.8 PG (27.0-34.0); MEAN CORPUSCULAR HGB CONC 34.3 % (32.0-36.0); PLATELET COUNT 163 TH/MM3 (150-450); RED BLOOD COUNT 4.14 MIL/MM3 (4.50-5.90); RED CELL DISTRIBUTION WIDTH 14.3 % (11.6-17.2); REVIEW FLAG FINAL; WHITE BLOOD COUNT 11.4 TH/MM3 (4.0-11.0)
[2016-12-29 05:24] LABS: BICARBONATE 25.1 MEQ/L (21.0-32.0); POTASSIUM 4.5 MEQ/L (3.5-5.1)
[2016-12-29] MEDS ORDERED: DEXTROSE 50% IN WATER 50 ML VIAL(D50) IV PUSH PRN (07:00)
[2016-12-29] MEDS ORDERED: ACETAMINOPHEN 325 MG TAB PO PRN (07:00)
[2016-12-29] MEDS ORDERED: GLUCAGON 1 MG/ML VIAL OTHER PRN (07:00)
[2016-12-29] MEDS: DILTIAZEM-CD 240 MG CAP ER PO SCH (08:23)
[2016-12-29] MEDS: FAMOTIDINE 20 MG TAB PO SCH ×2 (08:23→21:23)
[2016-12-29] MEDS: TAMSULOSIN HCL 0.4 MG CAP PO SCH ×2 (08:23→21:23)
[2016-12-29] MEDS: LOSARTAN 25 MG TAB PO SCH (08:24)
[2016-12-29] MEDS: ASPIRIN 325 MG TAB PO SCH (08:24)
[2016-12-29] MEDS: CLOPIDOGREL 75 MG TAB PO SCH (08:24)
[2016-12-29] MEDS: MEDIUM DOSE INSULIN NOVOLOG SUPPLEMENTAL SCALE SQ SCH ×3 (08:26→21:00)
--- NOTE | 2016-12-29 08:52 | MP ---
cc: KENNEY LOWERY MD DATE OF SURGERY 12/28/2016 PREOPERATIVE DIAGNOSIS Right lower extremity claudication, peripheral arterial occlusive disease. POSTOPERATIVE DIAGNOSIS Right lower extremity claudication, peripheral arterial occlusive disease. PROCEDURE 1. Right common femoral artery endarterectomy with patch angioplasty. 2. Right iliac atherectomy with orbital atherectomy device. 3. Right common iliac artery stent with an 8 x 80 Zilver. 4. Right external artery angioplasty with a 6-mm balloon. ATTENDING SURGEON Kenney Lowery MD ANESTHESIA General MEDICATIONS Mr. Brenner is a gentleman with peripheral vascular disease that manifests as short distance claudication. Preoperative CT scan suggests he had both common and femoral end inflow disease. He is taken to the operating room for angiographic evaluation and surgical treatment. DESCRIPTION OF PROCEDURE Informed consent was obtained from the patient. He was taken to the operating room, placed supine on the operating table. An appropriate time-out was taken to ensure the patient's identity, operative site and planned procedure. The administration of 900 mg of clindamycin was initiated prior to skin incision and will be discontinued after a single preoperative dose. Everyone in the room agreed with the time-out and we proceeded. He was prepped from his nipples to his toes. A vertical incision made in the patient's right groin, carried down through the subcutaneous tissue with electrocautery. The common femoral artery and distal external iliac artery were encircled with a vessel loop and then we dissected the common femoral artery down to the femoral bifurcation including both branches of the profunda and the superficial femoral artery. The patient was systemically heparinized and throughout the remainder of the case, the ACT was kept greater than 250. Proximal and distal control was obtained with profunda clamps and a longitudinal arteriotomy was made extending from the proximal SFA back to the proximal common femoral artery. The artery was endarterectomized without difficulty and a nice endpoint was sheath proximally and distally. Bovine pericardial patch was brought up onto the field and sewn on with 5-0 Prolene suture. At the completion, it was flushed and noted to be hemostatic. The clamps were released. A 21 gauge micropuncture needle was used to access the middle of the patch which was exchanged using Seldinger technique through the micropuncture sheath through which a 0.035 Glidewire was introduced. The micropuncture sheath was exchanged for a 6-Macanese sheath. The Floqenstein catheter was placed over the wire and through the sheath and used to navigate into the aorta and an aortogram right iliac angiogram were obtained. The 0.014 Viper wire was introduced and the Berenstein catheter was removed and a CSI oral atherectomy device was used to atherectomize the iliac artery. This was an angioplasty with a 6 and then a 6 mm balloon and then an angiogram was obtained. An 8 x 80 Zilver was then deployed in the proximal common iliac artery down to the distal common iliac artery and postdilated to 7 mm. The completion angiogram showed excellent result on a recoil extravasation. External iliac artery angiogram was obtained. This showed external artery stenosis. It was treated with a 6 mm balloon. At the completion, angiogram showed excellent result on a recoil extravasation. The wire, catheter, and sheath were removed. The sheathotomy inside the patch was closed with 6-0 Prolene sutures. There was a nice Doppler signal in the foot. The heparin was reversed with protamine. The wound was irrigated, made hemostatic and closed with 2-0 Polysorb, 3-0 Polysorb and 4-0 Monocryl. The sponge and needle counts were correct at the end of the case. I was present, scrubbed and performed the entire procedure. 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 There is a smooth external artery stenosis that is angioplastied and stented. MD SEYMOUR Velez/SEMAJ /3:25 PM /8:31 AM
--- NOTE | 2016-12-29 09:56 | PD.VS.PN ---
Subjective POD #: 1 Procedure(s): R QUALITY CONTROL CHECKER TEA and iliac PROCESS LINE OPERATOR/stent Subjective/Hospital Course looks great; occasional shooting pain down leg no groin discomfort Objective Vitals/I&O Date Time Temp Pulse Resp B/P (MAP) Pulse Ox O2 Delivery O2 Flow Rate FiO2 12/29/16 07:15 84 12/29/16 07:15 97.4 84 18 115/65 (82) 93 12/29/16 06:00 78 12/29/16 05:00 76 12/29/16 04:00 77 12/29/16 03:30 97.7 77 16 141/69 (93) 97 12/29/16 03:00 78 12/29/16 02:00 72 12/29/16 01:00 80 12/29/16 00:00 81 12/28/16 23:10 97.9 81 18 143/70 (94) 96 12/28/16 23:00 77 12/28/16 22:00 82 12/28/16 21:00 80 12/28/16 20:00 97.6 81 18 157/84 (108) 97 12/28/16 20:00 78 12/28/16 19:00 82 12/28/16 18:10 72 12/28/16 17:35 70 12/28/16 17:00 98.3 71 16 156/83 (107) 98 12/28/16 16:00 97.7 66 20 141/70 (93) 97 Room Air 12/28/16 15:45 74 20 142/79 (100) 96 Room Air 12/28/16 15:30 75 22 102/62 (75) 97 Nasal Cannula 2 12/28/16 15:15 75 26 97/62 (74) 97 Nasal Cannula 2 12/28/16 15:00 85 22 106/53 (70) 97 Nasal Cannula 2 12/28/16 14:56 97.5 85 20 113/60 (77) 97 Nasal Cannula 2 12/28/16 10:13 97.8 82 20 137/75 (95) 100 12/29/16 12/29/16 12/29/16 07:00 15:00 23:00 Intake Total 1440 ml Output Total 3425 ml Balance -1985 ml Exam: sitting on side of bed, no distress palpable R PT Laboratory Laboratory Tests Test 11/9/17 10:10 12/29/16 04:10 White Blood Count 5.9 11.4 Red Blood Count 4.61 4.14 Hemoglobin 14.3 12.7 Hematocrit 41.7 37.1 Mean Corpuscular Volume 90.3 89.7 Mean Corpuscular Hemoglobin 31.0 30.8 Mean Corpuscular Hemoglobin Concent 34.3 34.3 Red Cell Distribution Width 14.2 14.3 Platelet Count 224 163 Mean Platelet Volume 7.7 7.2 Neutrophils (%) (Auto) 60.3 Lymphocytes (%) (Auto) 24.7 Monocytes (%) (Auto) 13.1 Eosinophils (%) (Auto) 0.8 Basophils (%) (Auto) 1.1 Neutrophils # (Auto) 3.6 Lymphocytes # (Auto) 1.5 Monocytes # (Auto) 0.8 Eosinophils # (Auto) 0.0 Basophils # (Auto) 0.1 CBC Comment DIFF FINAL Differential Comment Prothrombin Time 10.4 Prothromb Time International Ratio 0.9 Blood Urea Nitrogen 7 11 Creatinine 0.78 1.02 Random Glucose 124 306 Calcium Level 8.8 8.4 Sodium Level 135 131 Potassium Level 4.1 4.5 Chloride Level 101 96 Carbon Dioxide Level 25.6 25.1 Anion Gap 8 10 Estimat Glomerular Filtration Rate 99 72 Assessment and Plan Plan POD#1 s/p R QUALITY CONTROL CHECKER TEA and iliac PROCESS LINE OPERATOR/stent Looks great normalize tylenol for pain (pt choice) reg diet, meds SSI Discharge Planning tomorrow (POD#2) Kenney Lowery MD Dec 29, 2016 09:56
[2016-12-29] MEDS ORDERED: INFLUENZA VIRUS VACCINE (QUADRIVALENT) 0.5 ML SYR IM ONE (10:00)
[2016-12-29] MEDS ORDERED: ZOLPIDEM TARTRATE 5 MG TAB PO PRN (10:00)
[2016-12-29] MEDS: ACETAMINOPHEN 325 MG TAB PO PRN ×3 (13:42→23:56)
[2016-12-29] MEDS ORDERED: ENOXAPARIN SODIUM 30 MG/0.3 ML SYRINGE SQ SCH (14:00)
[2016-12-29] MEDS: ATORVASTATIN 20 MG TAB PO SCH (21:23)
[2016-12-29] MEDS: FINASTERIDE 5 MG TAB PO SCH (21:23)
[2016-12-30] VITALS (14 sets, daily range): BP systolic 144–151; BP diastolic 71–79; PULSE 64–96; RESP 16–18; TEMP 97.8–97.9; O2SAT 96–97
[2016-12-30] MEDS: ACETAMINOPHEN 325 MG TAB PO PRN ×2 (04:23→08:13)
[2016-12-30] MEDS: MEDIUM DOSE INSULIN NOVOLOG SUPPLEMENTAL SCALE SQ SCH ×2 (08:05→12:00)
[2016-12-30] MEDS: DILTIAZEM-CD 240 MG CAP ER PO SCH (08:05)
[2016-12-30] MEDS: CLOPIDOGREL 75 MG TAB PO SCH (08:06)
[2016-12-30] MEDS: LOSARTAN 25 MG TAB PO SCH (08:06)
[2016-12-30] MEDS: ASPIRIN 325 MG TAB PO SCH (08:06)
[2016-12-30] MEDS: TAMSULOSIN HCL 0.4 MG CAP PO SCH (08:06)
[2016-12-30] MEDS: FAMOTIDINE 20 MG TAB PO SCH (08:06)
--- NOTE | 2016-12-30 10:09 | PD.VS.PN ---
Subjective POD #: 2 Procedure(s): R PEST CONTROL WORKER HELPER TEA and iliac HANDLING TECH/stent Subjective/Hospital Course looks great; Sourav diet pain controlled Objective Vitals/I&O Date Time Temp Pulse Resp B/P (MAP) Pulse Ox O2 Delivery O2 Flow Rate FiO2 12/30/16 09:13 18 12/30/16 06:04 75 12/30/16 05:35 70 12/30/16 04:20 72 12/30/16 03:15 97.8 78 16 151/79 (103) 96 12/30/16 03:08 75 12/30/16 02:09 65 12/30/16 01:47 64 12/30/16 00:15 74 12/29/16 23:20 97.6 63 16 130/67 (88) 98 12/29/16 23:00 68 12/29/16 22:00 82 12/29/16 21:15 74 12/29/16 20:01 72 12/29/16 20:01 97.6 78 18 138/81 (100) 98 12/29/16 18:00 76 12/29/16 17:00 72 12/29/16 15:30 75 12/29/16 15:30 98.4 71 18 129/61 (83) 99 12/29/16 15:00 72 12/29/16 14:00 74 12/29/16 13:00 76 12/29/16 12:00 70 12/29/16 11:45 75 12/29/16 11:45 97.8 75 20 121/58 (79) 96 12/29/16 11:00 72 12/30/16 12/30/16 12/30/16 07:00 15:00 23:00 Intake Total 720 ml Output Total 1875 ml Balance -1155 ml Exam: VAC removed groin incision c/d/i Palpable R PT Assessment and Plan Plan POD#2 s/p R PEST CONTROL WORKER HELPER TEA and iliac HANDLING TECH/stent Ready for D/C Discharge Planning today Kenney Lowery MD Dec 30, 2016 10:09
--- NOTE | 2016-12-30 10:11 | PD.VS.DC ---
Discharge Summary Admission Date: Dec 28, 2016 at 09:15 Discharge Date: Dec 30, 2016 Admission Diagnosis: (1) PAD (peripheral artery disease) Discharge Diagnosis: (1) PAD (peripheral artery disease) ICD Codes: I73.9 - Peripheral vascular disease, unspecified Status: Acute Brief History from admission 71 yo male with PAD and R LE claudication. He has tried conservative therapy. He underwent L groin reconstruction and angio with relief of L LE symptoms. Presents for R LE. Procedure(s): R EQUIPMENT MAINTENANCE TECH TEA and iliac BUCKRAM SEWER/stent Significant Findings Laboratory Tests Test 12/28/16 10:10 12/29/16 04:10 Monocytes (%) (Auto) 13.1 % (0.0-8.0) Random Glucose 124 MG/DL (74-106) 306 MG/DL (74-106) Sodium Level 135 MEQ/L (136-145) 131 MEQ/L (136-145) White Blood Count 11.4 TH/MM3 (4.0-11.0) Red Blood Count 4.14 MIL/MM3 (4.50-5.90) Hemoglobin 12.7 GM/DL (13.0-17.0) Hematocrit 37.1 % (39.0-51.0) Calcium Level 8.4 MG/DL (8.5-10.1) Chloride Level 96 MEQ/L (98-107) Estimat Glomerular Filtration Rate 72 ML/MIN (>89) Hospital Course: Pt was admitted post-op. Over the 2 days, he advanced his diet without difficulty, was ambulating well and had no troubles. Palpable PT at foot upon discharge. Discharge Condition: Good Discharge Disposition: Discharge Home Any questions or concerns: Call [facility] [phone] Kenney Lowery MD Dec 30, 2016 10:11
== END 2016-12-30 14:00 | disposition home or self-care (01) | DRG 272 ==
LOC: HSDI 09:15 → HCPC 16:53
PROVIDERS: ADMIT Surgery; ATTEND Surgery
PROC: 04UK0KZ Supplement Right Femoral Artery with Nonautologous Tissue Substitute, Open Approach (ICD-10-PCS; 2016-12-28)
PROC: 047C34Z Dilation of Right Common Iliac Artery with Drug-eluting Intraluminal Device, Percutaneous Approach (ICD-10-PCS; 2016-12-28)
PROC: 047H3ZZ Dilation of Right External Iliac Artery, Percutaneous Approach (ICD-10-PCS; 2016-12-28)
PROC: B4101ZZ Fluoroscopy of Abdominal Aorta using Low Osmolar Contrast (ICD-10-PCS; 2016-12-28)
PROC: 04CC3ZZ Extirpation of Matter from Right Common Iliac Artery, Percutaneous Approach (ICD-10-PCS; principal; 2016-12-28 11:57)
PROC: 04CK0ZZ Extirpation of Matter from Right Femoral Artery, Open Approach (ICD-10-PCS; 2016-12-28 11:57)
DX: I70.218 Atherosclerosis of native arteries of extremities with intermittent claudication, other extremity (principal); Z95.1 Presence of aortocoronary bypass graft; I10 Essential (primary) hypertension; E11.9 Type 2 diabetes mellitus without complications; K21.9 Gastro-esophageal reflux disease without esophagitis; I25.10 Atherosclerotic heart disease of native coronary artery without angina pectoris; Z23 Encounter for immunization; Z87.891 Personal history of nicotine dependence; Z79.82 Long term (current) use of aspirin; Z79.84 Long term (current) use of oral hypoglycemic drugs
CPT/HCPCS: 71010; 75710; 80048; 85025; 85027; 85610; 86850; 86900; 86901; 90686; 93005; C1725; C1768; C1769; C1876; J0131; J1642; J1644; J1650; J1815; J2270; J2370; J2405; J2710; J2720; J2930; J3010; J7040; J7050; Q2038